=== PATIENT | male | born 1985 | race Caucasian/White ===

== ENCOUNTER 2023-02-14 01:26 | Emergency (ER) | payer BC ==
[2023-02-14] MEDS ORDERED: Ketorolac 60 MG/2 ML SDV IM ONE (01:42)
[2023-02-14] MEDS ORDERED: diphenhydrAMINE 50 MG/ML SDV IM ONE (01:42)
== END 2023-02-14 02:00 | disposition home or self-care (01) ==
LOC: JD.ED 01:26
DX: G43.909 Migraine, unspecified, not intractable, without status migrainosus (principal); Z88.6 Allergy status to analgesic agent
CPT/HCPCS: 96372; 99283; J1200; J1885; 99282